=== PATIENT | male | born 1985 | race Caucasian/White ===

== ENCOUNTER 2024-04-15 19:40 | Emergency (ER) | payer SELFPAY ==
[~2024-04-15] VITALS: Ht 172.7 cm; Wt 74.8 kg
[2024-04-15 19:42] VITALS: BP 137/97; PULSE 138; RESP 18; TEMP 98; O2SAT 95
[2024-04-15 21:50] VITALS: BP 129/92; PULSE 118; RESP 18; TEMP 98; O2SAT 95
[2024-04-15] MEDS ORDERED: AMOX1TAB8 PO (22:15)
== END 2024-04-15 22:20 ==
LOC: MED 19:40 → EDBD 19:40 → MED 22:20
DX: S02.2XXA Fracture of nasal bones, initial encounter for closed fracture (principal); S02.19XA Other fracture of base of skull, initial encounter for closed fracture; Z79.2 Long term (current) use of antibiotics; Y04.8XXA Assault by other bodily force, initial encounter; Y93.89 Activity, other specified; Y92.89 Other specified places as the place of occurrence of the external cause; Y99.8 Other external cause status
CPT/HCPCS: 70450; 70486; 99284

== ENCOUNTER 2024-04-24 19:51 | Emergency (ER) | payer SELFPAY ==
[~2024-04-24] VITALS: Ht 167.6 cm; Wt 81.6 kg
[~2024-04-24 19:51] MED LIST: AMOX1TAB8 PO
[2024-04-24 20:21] VITALS: BP 140/101; PULSE 89; RESP 14; TEMP 97.5; O2SAT 98
[2024-04-24] MEDS: KETOROLAC 30 MG/ML VIAL IM ONE (20:48)
[2024-04-24] MEDS: LIDOCAINE 5% 1 EA PATCH TP ONE (20:48)
[2024-04-24 21:15] VITALS: BP 140/101; PULSE 89; RESP 14; TEMP 97.5; O2SAT 98
[2024-04-24] MEDS ORDERED: LID5T TP (22:04)
== END 2024-04-24 22:36 | disposition home or self-care (01) ==
LOC: MED 19:51
DX: S20.213A Contusion of bilateral front wall of thorax, initial encounter (principal); R03.0 Elevated blood-pressure reading, without diagnosis of hypertension; Z79.2 Long term (current) use of antibiotics; Z79.899 Other long term (current) drug therapy; X58.XXXA Exposure to other specified factors, initial encounter; Y93.89 Activity, other specified; Y92.89 Other specified places as the place of occurrence of the external cause; Y99.8 Other external cause status
CPT/HCPCS: 71250; 96372; 99285; J1885